=== PATIENT | female | born 1995 | race African-American/Black ===

== ENCOUNTER 2019-02-19 15:18 | Emergency (ER) | payer OTHER ==
[~2019-02-19] VITALS: Ht 154.9 cm; Wt 54.5 kg
[2019-02-19 15:20] VITALS: BP 140/91
== END 2019-02-19 16:21 | disposition left against medical advice (07) ==
LOC: EMS 15:20
DX: Z53.21 Procedure and treatment not carried out due to patient leaving prior to being seen by health care provider (principal)